=== PATIENT | male | born 1965 | race Caucasian/White ===

== ENCOUNTER → 2019-10-01 | Outpatient (CLI) | payer MEDICARE ==
--- NOTE | 2019-10-01 12:13 | RADIOLOGY REPORT (SQ) ---
EXAM DESCRIPTION: VENOUS BILATERAL LOWER COMPLETED DATE/TIME: 10/01/2019 11:50 am REASON FOR STUDY: PVD I73.9 PERIPHERAL VASCULAR DISEASE, UNSPECIFIED COMPARISON: None. TECHNIQUE: Dynamic and static turner scale and color images acquired of both lower extremity venous sy stems. Selected spectral images acquired with additional compression and augmentation maneuvers. Imag es stored on PACS. LIMITATIONS: None. FINDINGS: RIGHT LEG COMMON FEMORAL AND FEMORAL: Normal phasicity, compression and augmentation. No visualized echogenic m aterial on turner scale. No defects on color images. POPLITEAL: Normal compression and augmentation. No visualized echogenic material on turner scale. No de fects on color images. CALF VESSELS: Normal compression and augmentation. No visualized echogenic material on turner scale. No defects on color image. GSV AND SSV: Normal compression. No visualized echogenic material on turner scale. No defects on color images. ANY DEEP VENOUS INSUFFICIENCY: No reflux on Valsalva. ANY EVIDENCE OF POPLITEAL CYST: No. OTHER: No other significant finding. LEFT LEG COMMON FEMORAL AND FEMORAL: Normal phasicity, compression and augmentation. No visualized echogenic m aterial on turner scale. No defects on color images. POPLITEAL: Normal compression and augmentation. No visualized echogenic material on turner scale. No de fects on color images. CALF VESSELS: Normal compression and augmentation. No visualized echogenic material on turner scale. No defects on color images. GSV AND SSV: Normal compression. No visualized echogenic material on turner scale. No defects on color images. ANY DEEP VENOUS INSUFFICIENCY: No reflux on Valsalva. ANY EVIDENCE POPLITEAL CYST: No. OTHER: No other significant finding. IMPRESSION: NO EVIDENCE DVT OR SVT IN EITHER LEG. TECHNICAL DOCUMENTATION: JOB ID: [id number] [employer]- All Rights Reserved Reading location - IP/workstation name: [email or web address]
== END ==
LOC: SP 08:33
PROVIDERS: ATTEND Physician Assistant
DX: I73.9 Peripheral vascular disease, unspecified (principal)
CPT/HCPCS: 93922; 93970

== ENCOUNTER 2020-07-18 11:32 | Emergency (ER) | payer MEDICARE ==
--- NOTE | 2020-07-18 12:37 | ER Document Report ---
ED Medical Screen (RME) - General Chief Complaint: Palpitations Stated Complaint: DIZZINESS, URINATION PROBLEM Time Seen by Provider: 07/18/20 12:33 Primary Care Provider: KHOI SANABRIA PA-C [Primary Care Provider] - Follow up as needed Mode of Arrival: Ambulatory Information source: Patient Notes: 54-year-old male presented to ED for palpitations. He states he was out doing some stuff in his heart was racing. His pulse was 145 and his blood pressure was 254/190. He states when he got home and got his blood pressure medicine his blood pressure did come down he states he still feels a fluttering in his chest. He is also very dizzy when this happened. Patient states he also has difficulty urinating. He states this is been going on for couple weeks he just dribbles a little bit. He states he needs to get to a urologist for that. We will get blood urine EKG chest x-ray and have him seen by another provider. She has been feeling some numbness on the left side of his chest for a couple weeks the palpitations started today I have greeted and performed a rapid initial assessment of this patient. A comprehensive ED assessment and evaluation of the patient, analysis of test results and completion of medical decision making process will be conducted by an additional ED providers. TRAVEL OUTSIDE OF THE [place] IN LAST 30 DAYS: No - Related Data Allergies/Adverse Reactions: No Known Allergies Allergy (Verified 07/18/20 12:35) Physical Exam - Vital signs Vitals: Temp Pulse Resp BP Pulse Ox 97.7 F 94 18 138/89 H 98 07/18/20 12:21 07/18/20 12:21 07/18/20 12:21 07/18/20 12:21 07/18/20 12:21 Course - Vital Signs Vital signs: Temp Pulse Resp BP Pulse Ox 97.7 F 94 18 138/89 H 98 07/18/20 12:21 07/18/20 12:21 07/18/20 12:21 07/18/20 12:21 07/18/20 12:21 Doctor's Discharge - Discharge Referrals: KHOI SANABRIA PA-C [Primary Care Provider] - Follow up as needed
--- NOTE | 2020-07-18 13:21 | RADIOLOGY REPORT (SQ) ---
EXAM DESCRIPTION: CHEST 2 VIEWS IMAGES COMPLETED DATE/TIME: 07/18/2020 1:06 pm REASON FOR STUDY: palpitation chest pain COMPARISON: None. EXAM PARAMETERS: NUMBER OF VIEWS: two views TECHNIQUE: Digital Frontal and Lateral radiographic views of the chest acquired. RADIATION DOSE: NA LIMITATIONS: none FINDINGS: LUNGS AND PLEURA: No opacities, masses or pneumothorax. No pleural effusion. MEDIASTINUM AND HILAR STRUCTURES: No masses or contour abnormalities. HEART AND VASCULAR STRUCTURES: Heart normal size. No evidence for failure. BONES: No acute findings. HARDWARE: Partially visualized hardware anterior cervical spine. OTHER: No other significant finding. IMPRESSION: 1. NO ACUTE RADIOGRAPHIC FINDING IN THE CHEST. TECHNICAL DOCUMENTATION: JOB ID: [id number] 2010 [employer]- All Rights Reserved Reading location - IP/workstation name: [email or web address]
[2020-07-18 13:50] LABS: APPEARANCE,URINE CLEAR; BILIRUBIN,URINE NEGATIVE (NEGATIVE); COLOR,URINE YELLOW; GLUCOSE, URINE NEGATIVE (NEGATIVE); KETONES,URINE TRACE mg/dL (NEGATIVE); LEUKOCYTE ESTERASE,URINE NEGATIVE (NEGATIVE); NITRITE,URINE NEGATIVE (NEGATIVE); PROTEIN,URINE NEGATIVE (NEGATIVE); URINE SPECIFIC GRAVITY 1.009; UROBILINOGEN,URINE NEGATIVE mg/dL (<2.0)
[2020-07-18 14:40] LABS: ABSOLUTE BASOPHILS # (AUTO) 0.1 10^3/uL (0.0-0.2); ABSOLUTE EOSINOPHILS # (AUTO) 0.1 10^3/uL (0.0-0.6); ABSOLUTE LYMPHOCYTES (AUTO) 1.2 10^3/uL (0.5-4.7); ABSOLUTE MONOCYTES (AUTO) 0.4 10^3/uL (0.1-1.4); ABSOLUTE NEUT (AUTO) 7.3 10^3/uL (1.7-8.2); BASOPHILS % (AUTO) 0.7 % (0-2); EOSINOPHILS % (AUTO) 0.6 % (0-6); HEMATOCRIT 41.4 % (37.9-51.0); HEMOGLOBIN 14.2 g/dL (13.5-17.0); LYMPHOCYTES % (AUTO) 13.3 % (13-45); MEAN CORPUSCULAR HEMOGLOBIN 30.9 pg (27.0-33.4); MEAN CORPUSCULAR HGB CONC 34.4 g/dL (32.0-36.0); MEAN CORPUSCULAR VOLUME 90 fl (80-97); MONOCYTES % (AUTO) 3.9 % (3-13); PLATELET COUNT 157 10^3/uL (150-450); SEGMENTED NEUTROPHILS % (AUTO) 81.5 % (42-78); TOTAL CELLS COUNTED % (AUTO) 100 %; WHITE BLOOD COUNT 8.9 10^3/uL (4.0-10.5)
[2020-07-18 15:02] LABS: ALKALINE PHOSPHATASE 61 U/L (38-126); ANION GAP 8 (5-19); ASPARTATE AMINO TRANSFERASE 20 U/L (17-59); BILIRUBIN,DIRECT 0.2 mg/dL (0.0-0.4); BILIRUBIN,TOTAL 0.7 mg/dL (0.2-1.3); BLOOD UREA NITROGEN 13 mg/dL (7-20); CALCIUM 9.1 mg/dL (8.4-10.2); CARBON DIOXIDE 29 mmol/L (22-30); CHLORIDE 100 mmol/L (98-107); GLUCOSE 98 mg/dL (75-110); POTASSIUM 4.2 mmol/L (3.6-5.0); TOTAL PROTEIN 6.1 g/dL (6.3-8.2)
--- NOTE | 2020-07-18 15:49 | EKG REPORT ---
SEVERITY:- NORMAL ECG - SINUS RHYTHM ST ELEV, PROBABLE NORMAL EARLY REPOL PATTERN : Confirmed by: Ailyn Rasmussen MD 18-Jul-2020 15:48:24
[2020-07-18 17:01] LABS: URINE AMPHETAMINES SCREEN NEGATIVE; URINE BARBITURATES SCREEN NEGATIVE; URINE BENZODIAZEPINES SCREEN NEGATIVE; URINE COCAINE SCREEN NEGATIVE; URINE MARIJUANA (THC) SCREEN NEGATIVE; URINE METHADONE SCREEN NEGATIVE; URINE PHENCYCLIDINE SCREEN NEGATIVE
--- NOTE | 2020-07-18 18:59 | ER Document Report ---
ED General - General Chief Complaint: Palpitations Stated Complaint: DIZZINESS, URINATION PROBLEM Time Seen by Provider: 07/18/20 12:33 Primary Care Provider: KHOI SANABRIA PA-C [ALLIED HEALTH PROFESSIONAL] - Follow up as needed Mode of Arrival: Ambulatory TRAVEL OUTSIDE OF THE [place] IN LAST 30 DAYS: No - HPI Notes: Chief complaint: Problems with urination, palpitations and fluctuation of blood pressure History of present illness: 54-year-old male with history of BPH and hypertension has been intermittently taking Flomax 0.4 mg daily and also is taking lisinopril for blood pressure. He had some hesitancy with urination today and felt like his bladder was not emptying properly and during this time noted that his blood pressure earl very significantly and he felt lightheaded while straining to urinate. He did not pass out. He did not experience chest pain. He is a smoker. He denies any known history of coronary disease. He is not diabetic. He has no known history of hyperlipidemia. His family history is positive for CAD. He says that he has had a cath and a treadmill more than 5 years ago and both were reportedly normal. He denies any fever, chills, back pain or hematuria. He has had no nausea or vomiting. 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 HENT: Negative for sore throat. Eyes: Negative for visual changes. Cardiovascular: As per HPI. Respiratory: Negative for shortness of breath. Gastrointestinal: Negative for abdominal pain, vomiting or diarrhea. Genitourinary: As per HPI. Musculoskeletal: Negative for back pain. Skin: Negative for rash. Neurological: Negative for headaches, focal weakness or numbness. 10 point ROS negative except as marked above and in HPI. Physical Exam - Vital signs Vitals: Temp Pulse Resp BP Pulse Ox 97.7 F 94 18 138/89 H 98 07/18/20 12:21 07/18/20 12:21 07/18/20 12:21 07/18/20 12:21 07/18/20 12:21 - Notes Notes: GENERAL: Middle-age male appearing in no acute distress. SKIN: Good turgor no rashes. HEAD: Normocephalic atraumatic. EYES: PERRLA. EOMI. Conjunctivae and sclerae clear. EARS: CANALS AND TMS CLEAR. NOSE: CLEAR. MOUTH: Moist mucosa. Good dentition. No stridor or edema. No drooling. NECK: Supple. No masses or thyromegaly. No adenopathy. Carotids 2+ without bruits. No JVD. BACK: Symmetrical without tenderness. CHEST: Respirations unlabored. Breath sounds clear and symmetrical. HEART: Regular rhythm. No murmur gallop or rub. ABDOMEN: Soft nontender without masses, organomegaly or rebound. Bowel sounds normally active. No bruits. GENITALIA: Deferred. EXTREMITIES: No edema. No calf tenderness. Cap refill less than 1.5 seconds. Dorsalis pedis and posterior tibial pulses 3+ and symmetrical. NEUROLOGICAL: GCS 15. Alert and oriented x3. Normal gait. Fluent speech. Cranial nerves II through XII intact. Sensorimotor and cerebellar normal. Normal tone. PSYCHIATRIC: Appropriate affect. Course - Re-evaluation Re-evalutation: 07/18/20 18:58 Patient voided a large amount after arrival here and felt much better. His bl adder scan post void was about 100 cc. His urinalysis is unremarkable. Has had 2 - troponins greater than 3 hours apart here. His EKG showed some early repolarization changes only. Chest x-ray is unremarkable. I think this man probably had some acute hypertension related to acute urinary retention. I advised him to get back on his Flomax on a regular basis. He is to avoid any herbal supplements or [id number] antihistamine/decongestant combinations or sleep aids which I advised him could impair his bladder function. I think this man is stable for outpatient referral to urology and cardiology. I talked with him and his at some length about the importance of quitting cigarette smoking. He is interested in trying a nicotine patch. Findings, clinical impression and plan of treatment have been discussed with patient/family. Understanding of current findings and recommendations has been acknowledged by them and there is agreement regarding disposition and follow-up. - Vital Signs Vital signs: Temp Pulse Resp BP Pulse Ox 97.7 F 80 12 119/78 100 07/18/20 12:21 07/18/20 12:40 07/18/20 16:00 07/18/20 16:00 07/18/20 16:00 - Laboratory Result Diagrams: 07/18/20 14:05 07/18/20 14:05 Laboratory results interpreted by me: 07/18/20 07/18/20 07/18/20 13:30 14:05 14:05 Seg Neutrophils % 81.5 H Sodium 136.5 L Total Protein 6.1 L Urine Ketones TRACE H Discharge - Discharge Clinical Impression: Palpitation, Cigarette smoker Benign prostatic hyperplasia Qualifiers: Lower urinary tract symptom presence: symptoms present Lower urinary tract symptom detail: incomplete bladder emptying Qualified Code(s): N40.1 - Benign prostatic hyperplasia with lower urinary tract symptoms; R39.14 - Feeling of incomplete bladder emptying Condition: Stable Disposition: HOME, SELF-CARE Instructions: Palpitations (Irregular or Rapid Heartrate) ([facility]) Additional Instructions: Prostatic Hypertrophy You have evidence of an enlarged prostate gland. Prostate enlargement can cause difficulty starting or stopping urination, weak stream, getting up at night to urinate, and a sense that the bladder doesn't completely empty. Prostate cancer is common. A blood test called PSA (prostate specific antigen) can determine if you need further evaluation of your prostate gland. Benign prostatic hypertrophy, called BPH, only requires treatment if it interferes with urination. Medication (such as Hytrin or Proscar) can shrink the prostate gland. If symptoms don't resolve with medicine, surgery can remove the excess prostate tissue. Call the doctor or return if you are unable to urinate, or if you develop burning with urination, fever or chills, or pelvic pain. Follow-up with referral physicians. Take your Flomax daily. Avoid taking [id number] medications such as sleep aids and decongestants which may aggravate your bladder problem. Stop smoking Prescriptions: Nicotine [Nicoderm 21 mg/24 Hr Transderm Patch] 1 patch TD DAILY #30 patch.td24 Forms: Smoking Cessation Education Referrals: KHOI SANABRIA PA-C [ALLIED HEALTH PROFESSIONAL] - Follow up as needed RICHIE NOONAN MD [ACTIVE PROVISIONAL STAFF] - Follow up as needed JONH PEREZ MD [NO LOCAL MD] - Follow up as needed
[2020-07-18 19:10] VITALS: BP 128/70
== END 2020-07-18 19:11 | disposition home or self-care (01) ==
LOC: ER 11:32
DX: N40.1 Benign prostatic hyperplasia with lower urinary tract symptoms (principal); R39.14 Feeling of incomplete bladder emptying; R00.2 Palpitations; R42 Dizziness and giddiness; R39.198 Other difficulties with micturition; R39.11 Hesitancy of micturition; F17.210 Nicotine dependence, cigarettes, uncomplicated; Z79.899 Other long term (current) drug therapy; I10 Essential (primary) hypertension
CPT/HCPCS: 36415; 71046; 80053; 80307; 81001; 83735; 84484; 85025; 93005; 93010; 99285